=== PATIENT | male | born 1940 | race Caucasian/White ===

== ENCOUNTER 2024-11-05 15:06 | Emergency (ER) | payer MEDICARE, MEDICAID ==
[~2024-11-05] VITALS: Ht 172.7 cm; Wt 70.5 kg
--- NOTE | 2024-11-05 15:29 | ELECTROCARDIOGRAPH REPORT ---
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 Kirill Kim Measurements Intervals [place] Rate: 57 P: 35 RI: 182 QRS: -18 QRSD: 126 T: 46 QT: 430 QTc: 419 Interpretive Statements Sinus bradycardia Right bundle branch block Electronically Signed On 11-07-2024 6:35:[address] Kirill Kim Please click the below link to view image of tracing.
[2024-11-05] MEDS: normal saline 1000ml 1,000 ML IV ONE (15:34)
[2024-11-05 16:25] LABS: BASOPHILS % (AUTO) 0.7 % (0-1); EOSINOPHILS # (AUTO) 0.5 X10'3 (0-0.9); EOSINOPHILS % (AUTO) 7.3 % (0-6); HEMATOCRIT 33.8 % (42.0-52.0); HEMOGLOBIN 11.5 g/dl (14.0-17.9); LYMPHOCYTES # (AUTO) 1.3 X10'3 (1.1-4.8); LYMPHOCYTES % (AUTO) 17.4 % (21-51); MEAN CORPUSCULAR HEMOGLOBIN 30.9 PG (27.0-31.0); MEAN PLATELET VOLUME 7.1 FL (7.4-10.4); MONOCYTES # (AUTO) 0.7 X10'3 (0-0.9); MONOCYTES % (AUTO) 9.2 % (2-12); NEUTROPHILS # (AUTO) 4.9 X10'3 (1.8-7.7); NEUTROPHILS % (AUTO) 65.4 % (42-75); PLATELET COUNT 149 X10'3 (140-440); RED BLOOD COUNT 3.72 X10'6 (4.70-6.10); RED CELL DISTRIBUTION WIDTH 16.1 % (11.5-14.5); WHITE BLOOD COUNT 7.4 X10'3 (4.5-11.0)
[2024-11-05 17:07] LABS: ALANINE AMINOTRANSFERASE 11 U/L (12-78); ALBUMIN 2.9 G/DL (3.4-5.0); ALKALINE PHOSPHATASE 78 IU/L (46-116); ANION GAP 8 (8-16); ASPARTATE AMINO TRANSFERASE 15 U/L (10-37); BILIRUBIN,TOTAL 0.5 MG/DL (0.1-1.0); BLOOD UREA NITROGEN 49 MG/DL (7-18); CHLORIDE 104 MMOL/L (99-107); CREATININE 2.13 MG/DL (0.60-1.10); GLUCOSE 101 MG/DL (70-104); POTASSIUM 4.1 MMOL/L (3.5-5.1); SODIUM 136 MMOL/L (135-145); TOTAL PROTEIN 5.9 G/DL (6.4-8.2); eCRCL 25 ML/MIN; eGFR 30 ML/MIN
--- NOTE | 2024-11-05 17:32 | Physician Documentation ---
History of Present Illness ~ Chief Complaint: Hypotension Stated Complaint: HYPOTENTSION Time Seen by MD: 15:12 OK to notify your PCP?: Yes Primary Medical Doctor: KT Mode of Arrival: EMS HPI Patient was brought to the hospital for a low blood pressure this afternoon he has no complaints. The home health nurse took his blood pressure and that has below 100. He says he has been eating and drinking well he is not dehydrated. He has chronic back pain when she is unchanged she has no symptoms. Medication Reconciliation Allergies: Coded Allergies: codeine (Verified Allergy, Unknown, 11/05/24) Physical Exam Vital Signs: Heart Rate: 69, Respiratory Rate: 19, BP: 132/63, Pulse Oximetry: 98, Weight: 70.450 Oxygen Flow Rate: 0 Physical Exam General: Awake and Alert, no acute distress. He is lying in his right side he is very stiff has a difficult time moving due to chronic back pain. HEENT: Conjunctiva pink, Sclera clear, Mucus Membranes moist. Neck: Supple without masses and tenderness. Resp: Unlabored. Lungs clear to auscultation bilaterally. Heart: Regular Rate and rhythm, normal S1 and S2 without murmur, rub or gallop. Abdomen: Soft and non tender no organomegaly Extremities: No cyanosis,clubbing or edema. Skin: Warm and Dry. Neuro: GCS 15; no focal deficits Progress Results/Orders Results/Orders Completed Orders - GWYN CRANE MD Cbc/Diff (11/05/24 15:20) CMP (11/05/24 15:20) Electrocardiogram (11/05/24 ) Normal Saline 1000ml (Sodium Chloride 10 (11/05/24 15:20) Medications Received in ER Medications (Trade) Dose Ordered Sig/Bella Route PRN Reason Start Time Stop Time Status Last Admin Dose Admin Sodium Chloride 1,000 ml @ 1,000 mls/hr ONCE ONCE IV 11/05/24 15:20 11/05/24 16:19 DC 11/05/24 15:34 1,000 MLS/HR Vital Signs 11/05/24 11/05/24 11/05/24 15:07 15:41 16:32 Pulse 62 69 Resp 19 19 19 B/P (MAP) 105/69 132/63 (86) Pulse Ox 96 98 O2 Flow Rate 0 0 Laboratory Tests Test 11/05/24 16:00 White Blood Count 7.4 Red Blood Count 3.72 L Hemoglobin 11.5 L Hematocrit 33.8 L Mean Corpuscular Volume 91.0 Mean Corpuscular Hemoglobin 30.9 Mean Corpuscular Hemoglobin Concent 34.0 Red Cell Distribution Width 16.1 H Platelet Count 149 Mean Platelet Volume 7.1 L Neutrophils (%) (Auto) 65.4 Lymphocytes (%) (Auto) 17.4 L Monocytes (%) (Auto) 9.2 Eosinophils (%) (Auto) 7.3 H Basophils (%) (Auto) 0.7 Neutrophils # (Auto) 4.9 Lymphocytes # (Auto) 1.3 Monocytes # (Auto) 0.7 Eosinophils # (Auto) 0.5 Basophils # (Auto) 0.0 CBC Comment Sodium Level 136 Potassium Level 4.1 Chloride Level 104 Carbon Dioxide Level 24.0 Anion Gap 8 Blood Urea Nitrogen 49 H Creatinine 2.13 H Estimated GFR/1.73 m2 30 BUN/Creatinine Ratio 23.0 H Glucose Level 101 Calcium Level 9.0 Total Bilirubin 0.5 Aspartate Amino Transf (AST/SGOT) 15 Alanine Aminotransferase (ALT/SGPT) 11 L Alkaline Phosphatase 78 Total Protein 5.9 L Albumin 2.9 L Globulin 3.0 Albumin/Globulin Ratio 1.0 L Chemistry Comments Medical Decision Making Findings EKGs interpreted by me shows a sinus rhythm of 57 beats per minute axis intervals ST segments are normal. Patient had blood pressure taken at home by a home health aide and that has below 100. He has no symptoms he is afebrile. He was given a L of saline his labs show diminished renal function he says he has a history of stage III which correlates with the his labs today. After he received his IV fluids patient is demanding to be discharged it is reasonable his blood pressure has been normal the entire time here. Departure Disposition: HOME / SELF CARE / HOMELESS Impression: Primary Impression: Hypotension Qualified Codes: I95.9 - Hypotension, unspecified Condition: Stable Discharge Instructions: Hypotension, [id number] Referrals: NO PRIMARY CARE PROVIDER (PCP) Education Educated: Patient Educated regarding: diagnosis, treatment, prognosis, need for follow up Signature Scribe Signature: no scribe Attestation: no scribe GWYN CRANE MD Nov 05, 2024 17:31
[2024-11-05 17:51] VITALS: BP 138/65; PULSE 76; RESP 17; O2SAT 100
== END 2024-11-05 17:53 | disposition home or self-care (01) ==
LOC: ER 15:07
DX: I95.9 Hypotension, unspecified (principal); M54.9 Dorsalgia, unspecified
CPT/HCPCS: 36415; 80053; 85025; 93005; 96360; 99284; J7030